=== PATIENT | female | born 1950 | race Caucasian/White ===

== ENCOUNTER 2022-01-05 13:20 | Inpatient (IN) | payer OTHER ==
[~2022-01-05] VITALS: Ht 152.4 cm; Wt 85.3 kg
[2022-01-05] MEDS ORDERED: PREDNISOLONE SO10 MG (13:29)
[2022-01-06] MEDS ORDERED: ANTI ITCH (15:10)
[2022-01-06] MEDS ORDERED: TRIPLE ANTIBI28.4 G3 (15:11)
[2022-01-06] MEDS ORDERED: PREDNISONE20 M1 (15:11)
[2022-01-06] MEDS ORDERED: FERROUS SULFAT325 MG (15:11)
[2022-02-17] MEDS ORDERED: HYOSCYAMINE0.125 M1 SL (18:22)
[2022-02-17] MEDS ORDERED: AMLODIPINE BESYL5 MG PO (18:22)
[2022-02-17] MEDS ORDERED: LOSARTAN POTASS25 MG PO (18:23)
[2022-02-17] MEDS ORDERED: LOPRESSOR25 MG PO (18:23)
[2022-02-17] MEDS ORDERED: INTESTINEX680 M1 PO (18:25)
[2022-02-17] MEDS ORDERED: TRAMADOL HCL50 MG PO (18:25)
[2022-02-17] MEDS ORDERED: DEXAMETHASONE4 MG PO (18:26)
[2022-02-17] MEDS ORDERED: B Complex CAPSULE PO (18:26)
[2022-02-17] MEDS ORDERED: PROTEINEX-18 LI30 ML PO (18:27)
== END 2022-02-17 21:24 | disposition home or self-care (01) | DRG 840 ==
LOC: ER 13:20 → MEDJ 16:05 → MEDI 16:05
PROVIDERS: ADMIT Internal Medicine Hematology & Oncology; ATTEND Internal Medicine Hematology & Oncology
PROC: B02BZZZ Computerized Tomography (CT Scan) of Spinal Cord (ICD-10-PCS; 2022-01-05)
PROC: 30233N1 Transfusion of Nonautologous Red Blood Cells into Peripheral Vein, Percutaneous Approach (ICD-10-PCS; principal; 2022-01-06)
PROC: B24BYZZ Ultrasonography of Heart with Aorta using Other Contrast (ICD-10-PCS; 2022-01-06)
PROC: BW24ZZZ Computerized Tomography (CT Scan) of Chest and Abdomen (ICD-10-PCS; 2022-01-08)
PROC: 4A12X4Z Monitoring of Cardiac Electrical Activity, External Approach (ICD-10-PCS; 2022-01-09)
PROC: B24BZZ4 Ultrasonography of Heart with Aorta, Transesophageal (ICD-10-PCS; 2022-01-11)
PROC: 02HV33Z Insertion of Infusion Device into Superior Vena Cava, Percutaneous Approach (ICD-10-PCS; 2022-01-29)
PROC: B020ZZZ Computerized Tomography (CT Scan) of Brain (ICD-10-PCS; 2022-02-13)
PROC: B030Y0Z Magnetic Resonance Imaging (MRI) of Brain using Other Contrast, Unenhanced and Enhanced (ICD-10-PCS; 2022-02-14)
DX: C90.00 Multiple myeloma not having achieved remission (principal); I33.0 Acute and subacute infective endocarditis; D59.12 Cold autoimmune hemolytic anemia; D80.1 Nonfamilial hypogammaglobulinemia; N39.0 Urinary tract infection, site not specified; Z16.12 Extended spectrum beta lactamase (ESBL) resistance; I11.0 Hypertensive heart disease with heart failure; I50.9 Heart failure, unspecified; M54.50 Low back pain, unspecified; M25.551 Pain in right hip; I48.0 Paroxysmal atrial fibrillation; I95.1 Orthostatic hypotension; B96.1 Klebsiella pneumoniae [K. pneumoniae] as the cause of diseases classified elsewhere
CPT/HCPCS: 70545

== ENCOUNTER 2022-03-06 18:13 | Inpatient (IN) | payer OTHER ==
[~2022-03-06] VITALS: Ht 152.4 cm; Wt 73.9 kg
[~2022-03-06 18:13] MED LIST: AMLODIPINE BESYL5 MG PO; ANTI ITCH; B Complex CAPSULE PO; DEXAMETHASONE4 MG PO; FERROUS SULFAT325 MG; HYOSCYAMINE0.125 M1 SL; INTESTINEX680 M1 PO; LOPRESSOR25 MG PO; LOSARTAN POTASS25 MG PO; PREDNISOLONE SO10 MG; PREDNISONE20 M1; PROTEINEX-18 LI30 ML PO; TRAMADOL HCL50 MG PO; TRIPLE ANTIBI28.4 G3
--- NOTE | 2022-03-06 18:45 | NUR ---
PTE SE RECIBE POR AZUCAR CLARITA REFIERE PARAMEDICO Y FAMILIAR.
--- NOTE | 2022-03-06 21:10 | NUR ---
SE RECIBE PTE DEL AREA DE OBSERVACION ALERTA Y ORIENTADA A INTERVALOS EN COMPANIA DE FAMILIAR,SE COLOCA EN CAMA #18 SE CONECTA A MONITOR CARDIACO CONSTRANTE Y OXIMETRIA CONTINUA,SE REALIZA COVID ANTIGENO Y SE ENVIA A LABORATORIO,SE MANTIENEN A PTE EN OBSERVACION POR CAMBIOS.
[2022-03-10] MEDS ORDERED: [UNRECOGNIZED DRUG - OTHER] (10:53)
[2022-03-10] MEDS ORDERED: TRIPLE ANTIBI28.4 G3 (10:54)
[2022-03-10] MEDS ORDERED: ANTI ITCH (10:54)
[2022-03-10] MEDS ORDERED: BACITRACIN28.4 G1 (10:54)
[2022-03-10] MEDS ORDERED: HYDROCORTISO453.6 GM (10:54)
[2022-03-10] MEDS ORDERED: PREDNISONE20 M1 (10:54)
[2022-03-10] MEDS ORDERED: FERROUS SULFAT325 MG (10:54)
[2022-03-17] MEDS ORDERED: LOSARTAN POTASS25 MG PO (15:22)
[2022-03-17] MEDS ORDERED: AMLODIPINE BESYL5 MG PO (15:22)
[2022-03-17] MEDS ORDERED: LOPRESSOR25 MG PO (15:22)
[2022-03-17] MEDS ORDERED: INTESTINEX680 M1 PO (15:23)
[2022-03-17] MEDS ORDERED: PANTOPRAZOLE SO40 MG PO (15:23)
[2022-03-17] MEDS ORDERED: RISPERDAL0.5 MG PO (15:23)
[2022-03-17] MEDS ORDERED: DEXAMETHASONE4 MG PO (15:24)
[2022-03-17] MEDS ORDERED: PROTEINEX-18 LI30 ML PO (15:25)
[2022-03-17] MEDS ORDERED: HUMALOG100 UNIT/1 SUBCUTANEO (15:26)
[2022-03-17] MEDS ORDERED: [UNRECOGNIZED DRUG - OTHER] SUBCUTANEO (15:31)
[2022-03-17] MEDS ORDERED: LANTUS SUBCUTANEO (15:31)
[2022-03-17] MEDS ORDERED: RESTORIL15 MG PO (15:31)
[2022-03-17] MEDS ORDERED: B Complex CAPSULE PO (15:31)
== END 2022-03-17 18:42 | DRG 637 ==
LOC: ER 18:13 → MEDJ 03-07 01:12 → MEDI 03-07 01:12 → MEDJ 03-11 17:05
PROVIDERS: ADMIT Internal Medicine; ATTEND Internal Medicine
PROC: B24BZZZ Ultrasonography of Heart with Aorta (ICD-10-PCS; principal; 2022-03-07)
PROC: 4A12X4Z Monitoring of Cardiac Electrical Activity, External Approach (ICD-10-PCS; 2022-03-07)
DX: E11.01 Type 2 diabetes mellitus with hyperosmolarity with coma (principal); I21.4 Non-ST elevation (NSTEMI) myocardial infarction; E87.1 Hypo-osmolality and hyponatremia; C90.00 Multiple myeloma not having achieved remission; N39.0 Urinary tract infection, site not specified; I38 Endocarditis, valve unspecified; E86.0 Dehydration; D69.6 Thrombocytopenia, unspecified; I48.0 Paroxysmal atrial fibrillation; T38.0X5A Adverse effect of glucocorticoids and synthetic analogues, initial encounter; D64.89 Other specified anemias; R41.82 Altered mental status, unspecified; I11.0 Hypertensive heart disease with heart failure; I50.9 Heart failure, unspecified; Z20.822 Contact with and (suspected) exposure to COVID-19; B96.20 Unspecified Escherichia coli [E. coli] as the cause of diseases classified elsewhere; F43.20 Adjustment disorder, unspecified